=== PATIENT | female | born 1995 | race Two or more races ===

== ENCOUNTER 2018-09-11 13:18 | Emergency (ER) | payer OTHER ==
[2018-09-11 15:34] LABS: APPEARANCE,URINE CLEAR; BILIRUBIN,URINE NEGATIVE (NEGATIVE); COLOR,URINE YELLOW; GLUCOSE, URINE NEGATIVE (NEGATIVE); KETONES,URINE NEGATIVE (NEGATIVE); LEUKOCYTE ESTERASE,URINE NEGATIVE (NEGATIVE); NITRITE,URINE NEGATIVE (NEGATIVE); PROTEIN,URINE NEGATIVE (NEGATIVE); URINE SPECIFIC GRAVITY 1.012; UROBILINOGEN,URINE NEGATIVE mg/dL (<2.0)
[2018-09-11 15:37] LABS: ABSOLUTE BASOPHILS # (AUTO) 0.1 10^3/uL (0.0-0.2); ABSOLUTE LYMPHOCYTES (AUTO) 2.3 10^3/uL (0.5-4.7); ABSOLUTE MONOCYTES (AUTO) 0.6 10^3/uL (0.1-1.4); BASOPHILS % (AUTO) 1.2 % (0-2); EOSINOPHILS % (AUTO) 0.4 % (0-6); HEMATOCRIT 37.7 % (36.0-47.0); LYMPHOCYTES % (AUTO) 19.3 % (13-45); MEAN CORPUSCULAR HEMOGLOBIN 29.3 pg (27.0-33.4); MEAN CORPUSCULAR HGB CONC 34.3 g/dL (32.0-36.0); MEAN CORPUSCULAR VOLUME 85 fl (80-97); MONOCYTES % (AUTO) 4.9 % (3-13); PLATELET COUNT 392 10^3/uL (150-450); RED BLOOD COUNT 4.42 10^6/uL (3.72-5.28); RED CELL DISTRIBUTION WIDTH 13.9 % (11.5-14.0); SEGMENTED NEUTROPHILS % (AUTO) 74.2 % (42-78); TOTAL CELLS COUNTED % (AUTO) 100 %; WHITE BLOOD COUNT 12.1 10^3/uL (4.0-10.5)
[2018-09-11 15:54] LABS: ALANINE AMINOTRANSFERASE 18 U/L (9-52); ALBUMIN 4.5 g/dL (3.5-5.0); ALKALINE PHOSPHATASE 62 U/L (38-126); ANION GAP 16 (5-19); ASPARTATE AMINO TRANSFERASE 17 U/L (14-36); BILIRUBIN,DIRECT 0.1 mg/dL (0.0-0.4); BILIRUBIN,TOTAL 0.2 mg/dL (0.2-1.3); BLOOD UREA NITROGEN 9 mg/dL (7-20); CALCIUM 10.3 mg/dL (8.4-10.2); CARBON DIOXIDE 21 mmol/L (22-30); CHLORIDE 103 mmol/L (98-107); GLUCOSE 87 mg/dL (75-110); LIPASE 39.4 U/L (23-300); POTASSIUM 4.6 mmol/L (3.6-5.0); SODIUM 140.2 mmol/L (137-145); TOTAL PROTEIN 7.6 g/dL (6.3-8.2)
--- NOTE | 2018-09-11 16:08 | RADIOLOGY REPORT (SQ) ---
EXAM DESCRIPTION: U/S OB TRANSVAG W/DOPPLER COMPLETED DATE/TIME: 09/11/2018 3:57 pm REASON FOR STUDY: preg w bleeding COMPARISON: None. TECHNIQUE: Transvaginal static and realtime grayscale images acquired of the pelvis. Additional arik cted spectral and color Doppler images recorded. All images stored on PACs. CLINICAL AGE: 7 weeks 6 days bHCG: Pending. LIMITATIONS: None. FINDINGS: UTERUS: No masses. No anomalies. GESTATIONAL SAC: Normal shape. 5 weeks 5 days [place] 05/09/2019 YOLK SAC: No POLE: None present. RIGHT ADNEXA: Ovary not identified due to poor acoustical window. No adnexal free fluid. No adnexal masses. LEFT ADNEXA: Ovary not identified due to poor acoustical window. No adnexal free fluid. No adnexal masses. FREE FLUID: None. OTHER: Cervical length 4.4 cm IMPRESSION: POSSIBLE EARLY INTRAUTERINE . BHCG LEVEL NOT AVAILABLE FOR CORRELATION WITH US FINDINGS. CONSIDER F/U BHCG AND/OR ULTRASOUND FOR VERIFICATION AND TO EXCLUDE ECTOPIC and intrauterin e demise. . Trimester of : First - 0 to 13 weeks. TECHNICAL DOCUMENTATION: JOB ID: [id number] [employer]- All Rights Reserved Reading location - IP/workstation name: [email or web address]
--- NOTE | 2018-09-11 16:25 | ER Document Report ---
ED General - General Chief Complaint: Vaginal Bleeding Stated Complaint: VAGINAL BLEEDING Time Seen by Provider: 09/11/18 14:49 - HPI Patient complains to provider of: Bleeding in Notes: Patient coming in for bleeding in . Patient is a states approximate 6 weeks . Patient states had bleeding for the last 4 days intermittently. Patient denies any trauma denies any fevers chills nausea vomiting diarrhea denies any current care patient states that she has been taking her vitamins. Patient denies any sexual intercourse. Past Medical History - Social History Smoking Status: Never Smoker Frequency of alcohol use: None Drug Abuse: None Family History: Reviewed & Not Pertinent Patient has suicidal ideation: No Patient has homicidal ideation: No Renal/ Medical History: Denies: Hx Peritoneal Dialysis Review of Systems - Review of Systems Constitutional: No symptoms reported EENT: No symptoms reported Cardiovascular: No symptoms reported Respiratory: No symptoms reported Gastrointestinal: No symptoms reported Genitourinary: No symptoms reported Female Genitourinary: Vaginal bleeding Musculoskeletal: No symptoms reported Skin: No symptoms reported Hematologic/Lymphatic: No symptoms reported Neurological/Psychological: No symptoms reported -: Yes All other systems reviewed and negative Physical Exam - Vital signs Vitals: Temp Pulse Resp BP Pulse Ox 99 F 83 18 132/71 H 100 09/11/18 13:27 09/11/18 13:27 09/11/18 13:27 09/11/18 13:27 09/11/18 13:27 Interpretation: Normal - General General appearance: Appears well, Alert - HEENT Head: Normocephalic, Atraumatic Eyes: Normal Pupils: PERRL - Respiratory Respiratory status: No respiratory distress Chest status: Nontender Breath sounds: Normal Chest palpation: Normal - Cardiovascular Rhythm: Regular Heart sounds: Normal auscultation Murmur: No - Abdominal Inspection: Normal Distension: No distension Bowel sounds: Normal Tenderness: Nontender Organomegaly: No organomegaly - Back Back: Normal, Nontender - Extremities General upper extremity: Normal inspection, Nontender, Normal color, Normal ROM , Normal temperature General lower extremity: Normal inspection, Nontender, Normal color, Normal ROM , Normal temperature, Normal weight bearing. No: Katerine's sign - Neurological Neuro grossly intact: Yes Cognition: Normal Orientation: AAOx4 [place] Coma Scale Eye Opening: Spontaneous [place] Coma Scale Verbal: Oriented [place] Coma Scale Motor: Obeys Commands [place] Coma Scale Total: 15 Speech: Normal Motor strength normal: LUE, RUE, LLE, RLE Sensory: Normal - Psychological Associated symptoms: Normal affect, Normal mood - Skin Skin Temperature: Warm Skin Moisture: Dry Skin Color: Normal Course - Re-evaluation Re-evalutation: 09/11/18 16:25 The patient presents with vaginal bleeding without signs of peritonitis or other life-threatening or serious etiology. The patient appears stable for discharge and has been instructed to return immediately if the symptoms worsen in any way, or in 8-12hr if not improved for re-evaluation. The patient has been instructed to return if the symptoms worsen or change in any way. Ultrasound shows a 5-week 5-day possible early IUP. Patient was educated about the possibility of a miscarriage. Patient was given paperwork to return to ER for further beta-hCG testing hours recommend follow-up with [facility] or the health department. Patient is understanding will be discharged home. - Vital Signs Vital signs: Temp Pulse Resp BP Pulse Ox 99 F 83 18 132/71 H 100 09/11/18 13:27 09/11/18 13:27 09/11/18 13:27 09/11/18 13:27 09/11/18 13:27 - Laboratory Result Diagrams: 09/11/18 15:25 09/11/18 15:25 Laboratory results interpreted by me: 09/11/18 09/11/18 09/11/18 15:08 15:25 15:25 WBC 12.1 H Absolute Neutrophils 9.0 H Carbon Dioxide 21 L Creatinine 0.51 L Calcium 10.3 H Beta HCG, Quant 2910.80 H Urine Blood LARGE H Urine HCG, Qual POSITIVE H Discharge - Discharge Clinical Impression: Bleeding in early Condition: Good Disposition: HOME, SELF-CARE Instructions: Bleeding During Early ([facility]) Additional Instructions: Your ultrasound today shows a 5-week 5-day fetus. I would highly recommend following up in 48 hours for repeat blood testing. Continue to drink plenty of fluids to make sure he stay well-hydrated. Her also recommend taking the Reglan as provided for any nausea that she may have. Please take vitamins as prescribed return to ER symptoms worsen. Follow-up with your [facility] Prescriptions: Metoclopramide HCl [Reglan] 5 mg PO Q6 #30 tablet Prenat 115/Iron Fum/Folic/Dss [ 19 Tablet] 1 each PO DAILY #30 tablet Forms: Return to Work, Follow-Up Laboratory Testing
[2018-09-11 16:32] VITALS: BP 135/73
== END 2018-09-11 16:31 | disposition home or self-care (01) ==
LOC: ER 13:18
DX: O46.91 Antepartum hemorrhage, unspecified, first trimester (principal); Z3A.01 Less than 8 weeks gestation of pregnancy
CPT/HCPCS: 36415; 76817; 80053; 81001; 81025; 83690; 84702; 85025; 86900; 86901; 93976; 99284

== ENCOUNTER 2018-09-12 16:43 | Emergency (ER) | payer OTHER ==
[2018-09-12 17:04] VITALS: BP 124/76
--- NOTE | 2018-09-12 19:57 | RADIOLOGY REPORT (SQ) ---
EXAM DESCRIPTION: U/S OB TRANSVAGINAL W/O DOP COMPLETED DATE/TIME: 09/12/2018 7:46 pm REASON FOR STUDY: +preg bleeding COMPARISON: None. TECHNIQUE: Transvaginal static and realtime grayscale images acquired of the pelvis. Additional arik cted spectral and color Doppler images recorded. All images stored on PACs. CLINICAL AGE: 8 weeks 0 days [facility] LIMITATIONS: None. FINDINGS: UTERUS: No masses. No anomalies. GESTATIONAL SAC: Within the endocervical canal YOLK SAC: No. POLE: None present. RIGHT ADNEXA: Normal ovary with normal vascular flow. No adnexal free fluid. No adnexal masses. LEFT ADNEXA: Normal ovary with normal vascular flow. No adnexal free fluid. 1.9 cm corpus luteum. FREE FLUID: None. OTHER: No other significant finding. IMPRESSION: Gestational sac within the endocervical canal. Trimester of : First - 0 to 13 weeks. TECHNICAL DOCUMENTATION: JOB ID: [id number] [employer]- All Rights Reserved Reading location - IP/workstation name: [email or web address]
--- NOTE | 2018-09-12 20:05 | ER Document Report ---
ED General - General Chief Complaint: Vaginal Bleeding Stated Complaint: VAGINAL BLEEDING Time Seen by Provider: 09/12/18 17:31 - HPI Patient complains to provider of: Vaginal bleeding Notes: Patient coming in for evaluation of vaginal bleeding. Patient was seen yesterday by myself for vaginal bleeding . Patient states vaginal bleeding increased and thinks that she may have passed tissue. Patient denies any fever chills nausea vomiting diarrhea resting comfortably upon my evaluation. - Related Data Allergies/Adverse Reactions: No Known Allergies Allergy (Unverified 09/12/18 16:44) Past Medical History - Social History Smoking Status: Never Smoker Family History: Reviewed & Not Pertinent Patient has suicidal ideation: No Patient has homicidal ideation: No Renal/ Medical History: Denies: Hx Peritoneal Dialysis Review of Systems - Review of Systems Constitutional: No symptoms reported EENT: No symptoms reported Cardiovascular: No symptoms reported Respiratory: No symptoms reported Gastrointestinal: No symptoms reported Genitourinary: No symptoms reported Female Genitourinary: Vaginal bleeding Musculoskeletal: No symptoms reported Skin: No symptoms reported Hematologic/Lymphatic: No symptoms reported Neurological/Psychological: No symptoms reported -: Yes All other systems reviewed and negative Physical Exam - Vital signs Vitals: Temp Pulse Resp BP Pulse Ox 98.5 F 95 16 124/76 99 09/12/18 17:02 09/12/18 17:02 09/12/18 17:02 09/12/18 17:02 09/12/18 17:02 Interpretation: Normal - General General appearance: Appears well, Alert - HEENT Head: Normocephalic, Atraumatic Eyes: Normal Pupils: PERRL - Respiratory Respiratory status: No respiratory distress Chest status: Nontender Breath sounds: Normal Chest palpation: Normal - Cardiovascular Rhythm: Regular Heart sounds: Normal auscultation Murmur: No - Abdominal Inspection: Normal Distension: No distension Bowel sounds: Normal Tenderness: Nontender Organomegaly: No organomegaly - Back Back: Normal, Nontender - Extremities General upper extremity: Normal inspection, Nontender, Normal color, Normal ROM , Normal temperature General lower extremity: Normal inspection, Nontender, Normal color, Normal ROM , Normal temperature, Normal weight bearing. No: Katerine's sign - Neurological Neuro grossly intact: Yes Cognition: Normal Orientation: AAOx4 [place] Coma Scale Eye Opening: Spontaneous [place] Coma Scale Verbal: Oriented [place] Coma Scale Motor: Obeys Commands Faustino Coma Scale Total: 15 Speech: Normal Motor strength normal: LUE, RUE, LLE, RLE Sensory: Normal - Psychological Associated symptoms: Normal affect, Normal mood - Skin Skin Temperature: Warm Skin Moisture: Dry Skin Color: Normal Course - Re-evaluation Re-evalutation: 09/12/18 21:06 Beta-hCG is decreasing along with ultrasound showing gestational sac in the endocervix. Discussed with [facility] recommend follow-up tomorrow and pain medication was given to the patient Tylenol Motrin patient was given a copy of the results and explanation with the patient that she is having a miscarriage. Patient states understanding will be discharged home. - Vital Signs Vital signs: Temp Pulse Resp BP Pulse Ox 98.5 F 95 16 124/76 99 09/12/18 17:02 09/12/18 17:02 09/12/18 17:02 09/12/18 17:02 09/12/18 17:02 - Laboratory Laboratory results interpreted by me: 09/12/18 17:30 Beta HCG, Quant 2291.80 H Discharge - Discharge Clinical Impression: Incomplete miscarriage Condition: Good Disposition: HOME, SELF-CARE Instructions: Miscarriage ([facility]) Additional Instructions: Ultrasound today and your hormone levels are indicating that you are undergoing a miscarriage. He can expect to have some increased abdominal cramping along with increased bleeding. I highly recommend following up with the [facility] tomorrow he can call their office in the morning and explained that she was seen here in ER and recommended follow-up. I would recommend Tylenol Motrin for your pain control. Return to the ER for any other concerning issues Prescriptions: Ibuprofen [Motrin 600 mg Tablet] 600 mg PO Q8HP PRN #21 tablet PRN Reason: Forms: Return to Work Referrals: JOYCE HEARD MD [ACTIVE STAFF] - Follow up as needed
== END 2018-09-12 19:45 | disposition home or self-care (01) ==
LOC: ER 16:43
DX: O03.4 Incomplete spontaneous abortion without complication (principal); Z3A.00 Weeks of gestation of pregnancy not specified
CPT/HCPCS: 36415; 76817; 84702; 99284

== ENCOUNTER 2018-10-21 23:33 | Emergency (ER) | payer OTHER ==
[2018-10-22 03:52] VITALS: BP 126/74
--- NOTE | 2018-10-22 05:01 | ER Document Report ---
ED General - General Chief Complaint: Numbness of Arm Stated Complaint: WEAKNESS Time Seen by Provider: 10/22/18 04:47 Notes: Pt c/o "strange sensation" in head and intermittant loss of focus as well as "pins and needles" over entire body x 1.5-2 weeks. Denies unilateral weakness. Patient states "something is moving inside of my head." Seen at [facility] for same on Wednesday and given a referral to neurology to r/o seizure. Pt reports she is al ert and oriented during episodes, states no upper or lower body jerking or irregular movements. Patient states she called neurology on Wednesday and they have not called her back. Patient states last evening she had "weird sensation in my brain" which is why she presents to the emergency room. Pt. denies any head pain or pain anywhere states, "I can't explain it." Upon my examination patient was sleeping. Easily arousable with verbal stimuli. Patient is currently denying any complaints. She denies any headache, numbness, weakness, "strange sensations" in her head. Patient states that these sensations come and go and she currently does not have any. Past medical history: None Medications: None Allergies: None Patient denies smoking, denies illicit drug use, denies EtOH use. Last menstrual period 10/16/2018 TRAVEL OUTSIDE OF THE [place] IN LAST 30 DAYS: No - Related Data Allergies/Adverse Reactions: No Known Allergies Allergy (Verified 10/21/18 23:42) Past Medical History - General Information source: Patient - Social History Smoking Status: Never Smoker Chew tobacco use (# tins/day): No Frequency of alcohol use: None Drug Abuse: None Family History: Reviewed & Not Pertinent Patient has suicidal ideation: No Patient has homicidal ideation: No Renal/ Medical History: Denies: Hx Peritoneal Dialysis Review of Systems - Review of Systems Constitutional: denies: Chills, Fever EENT: denies: Eye pain, Eye discharge, Blurred vision Cardiovascular: denies: Chest pain, Palpitations, Dyspnea Respiratory: denies: Cough, Short of breath Gastrointestinal: denies: Abdominal pain, Diarrhea, Vomiting, Constipation Genitourinary: denies: Burning, Dysuria Female Genitourinary: See HPI Musculoskeletal: See HPI Skin: No symptoms reported Neurological/Psychological: See HPI Physical Exam - Vital signs Vitals: Temp Pulse Resp BP Pulse Ox 98.4 F 89 20 130/81 H 99 10/21/18 23:51 10/21/18 23:51 10/21/18 23:51 10/21/18 23:51 10/21/18 23:51 - Notes Notes: GENERAL: Initially sleeping upon my arrival to the room, alert, interacts well. No acute distress. HEAD: Normocephalic, atraumatic. EYES: Pupils equal, round, and reactive to light. Extraocular movements intact. ENT: Oral mucosa moist, tongue midline. Nares patent, no nasal septal hematoma, TM's intact, nonerythematous, nonbulging bilaterally. Pharynx within normal limits, no palatal petechiae or exudate noted NECK: Full range of motion. Supple. Trachea midline. LUNGS: Clear to auscultation bilaterally, no wheezes, rales, or rhonchi. No respiratory distress. HEART: Regular rate and rhythm. No murmur ABDOMEN: Soft, non-tender. Non-distended. Bowel sounds present in all 4 quadrants. EXTREMITIES: Moves all 4 extremities spontaneously. No edema, normal radial and dorsalis pedis pulses bilaterally. No cyanosis. 5 out of 5 strength all 4 extremities BACK: no cervical, thoracic, lumbar midline tenderness. No saddle anesthesia, normal distal neurovascular exam. NEUROLOGICAL: Alert and oriented x3. Normal speech. cranial nerves II through XII grossly intact PSYCH: Normal affect, normal mood. SKIN: Warm, dry, normal turgor. No rashes or lesions noted. NIH scale negative Course - Re-evaluation Re-evalutation: 10/22/18 05:00 Patient is currently having no symptoms at this time in the emergency room. NIH scale is negative, she is neurologically within normal limits. She is denying SI or HI auditory or visually hallucinations. Discussed need to follow-up with her primary care provider and inevitably continue to follow-up with neurology. Patient's exam is completely benign, at this point in time I do not feel like a CT of the patient's brain is warranted. Discussed close follow-up with PCP and neurologist, close return precautions discussed, patient stable for discharge. - Vital Signs Vital signs: Temp Pulse Resp BP Pulse Ox 98.0 F 79 16 126/74 H 100 10/22/18 03:50 10/22/18 03:50 10/22/18 03:50 10/22/18 03:50 10/22/18 03:50 Discharge - Discharge Clinical Impression: Pins and needles sensation Condition: Stable Disposition: HOME, SELF-CARE Additional Instructions: As we discussed you should follow-up with your primary care provider and inevitably continue to follow-up with neurology. Please return to the emergency room should you have any other concerning symptoms. Forms: Return to Work
== END 2018-10-22 05:05 | disposition home or self-care (01) ==
LOC: ER 23:33
DX: R20.2 Paresthesia of skin (principal)
CPT/HCPCS: 82962; 99284